=== PATIENT | male | born 1995 | race African-American/Black ===

== ENCOUNTER 2024-02-04 19:15 | Emergency (ER) | payer SELFPAY ==
[~2024-02-04] VITALS: Ht 182.9 cm; Wt 91.0 kg
[2024-02-04 19:17] VITALS: BP 140/95; PULSE 76; RESP 16; TEMP 98.6; O2SAT 97
== END 2024-02-04 22:57 | disposition left against medical advice (07) ==
LOC: ER 19:15
DX: R10.9 Unspecified abdominal pain (principal); Z53.21 Procedure and treatment not carried out due to patient leaving prior to being seen by health care provider
CPT/HCPCS: 71045; 99281; Z7610; 99283

== ENCOUNTER 2025-11-13 00:17 | Emergency (ER) | payer OTHER ==
[~2025-11-13] VITALS: Ht 190.5 cm; Wt 111.0 kg
[2025-11-13 00:20] VITALS: BP 133/86; TEMP 36.9; O2SAT 97
[2025-11-13 00:21] VITALS: PULSE 80; RESP 16; O2SAT 99
[2025-11-13] MEDS ORDERED: DEXAMETHASONE 10 MG/ML VIAL PO ONE (00:45)
[2025-11-13] MEDS ORDERED: IPRATROPIUM/ALBUTEROL 0.5-3(2.5)MG/3ML NEB HHN ONE (00:45)
== END 2025-11-13 01:15 | disposition left against medical advice (07) ==
LOC: ER 00:17
DX: J45.909 Unspecified asthma, uncomplicated (principal); Z53.21 Procedure and treatment not carried out due to patient leaving prior to being seen by health care provider; Z79.899 Other long term (current) drug therapy
CPT/HCPCS: 93005; 99281